=== PATIENT | male | born 1985 | race Caucasian/White ===

== ENCOUNTER 2017-08-06 08:08 | Emergency (ER) | payer OTHER ==
[~2017-08-06] VITALS: Ht 177.8 cm; Wt 45.4 kg
[~2017-08-06 08:08] MED LIST: CILOXAN5 ML OP; HYDROCODONE-AP1 EAC6 PO; IBUPROFEN 800800 M1 PO; MINOCIN100 MG PO; PENICILLIN V P500 MG PO
[2017-08-06] MEDS ORDERED: NORCO 5-325 TA1 EACH PO (08:41)
[2017-08-06] MEDS ORDERED: BACTRIM DS TAB1 EACH PO (08:41)
[2017-08-06 09:14] VITALS: BP 140/76
== END 2017-08-06 09:14 | disposition home or self-care (01) ==
LOC: M.ERS 08:08
DX: L02.211 Cutaneous abscess of abdominal wall (principal); Z87.891 Personal history of nicotine dependence

== ENCOUNTER 2018-01-01 19:16 | Emergency (ER) | payer OTHER ==
[~2018-01-01] VITALS: Ht 185.4 cm; Wt 131.5 kg
[~2018-01-01 19:16] MED LIST changes: +BACTRIM DS TAB1 EACH PO; +NORCO 5-325 TA1 EACH PO
[2018-01-01] MEDS ORDERED: NORCO 5-325 TA1 EACH PO (19:46)
[2018-01-01] MEDS ORDERED: PENICILLIN VK500 MG PO (19:46)
[2018-01-01 19:56] VITALS: BP 136/87
== END 2018-01-01 19:58 | disposition home or self-care (01) ==
LOC: M.ERS 19:16
DX: S02.5XXA Fracture of tooth (traumatic), initial encounter for closed fracture (principal); Z87.891 Personal history of nicotine dependence; X58.XXXA Exposure to other specified factors, initial encounter; Y93.89 Activity, other specified; Y92.89 Other specified places as the place of occurrence of the external cause; Y99.8 Other external cause status

== ENCOUNTER 2018-12-31 12:44 | Emergency (ER) | payer OTHER ==
[~2018-12-31] VITALS: Ht 185.4 cm; Wt 127.0 kg
[~2018-12-31 12:44] MED LIST changes: +PENICILLIN VK500 MG PO
[2018-12-31 14:05] LABS: URINE BILIRUBIN NEGATIVE (Negative); URINE BLOOD NEGATIVE (Negative); URINE CLARITY CLEAR; URINE COLOR YELLOW; URINE GLUCOSE-RANDOM NEGATIVE (Negative); URINE KETONES NEGATIVE (Negative); URINE LEUKOCYTES-REFLEX NEGATIVE (Negative); URINE NITRITE-REFLEX NEGATIVE (Negative); URINE PROTEIN NEGATIVE (Negative); URINE SPECIFIC GRAVITY 1.025 (1.005-1.030); URINE UROBILINOGEN 0.2 E.U./dl (0.2-1.0)
[2018-12-31] MEDS ORDERED: FLEXERIL PO (14:08)
[2018-12-31 14:22] VITALS: BP 116/76
== END 2018-12-31 14:23 | disposition home or self-care (01) ==
LOC: M.ERS 12:44
PROVIDERS: Nurse Practitioner Family
DX: S39.012A Strain of muscle, fascia and tendon of lower back, initial encounter (principal); Z87.891 Personal history of nicotine dependence; X50.9XXA Other and unspecified overexertion or strenuous movements or postures, initial encounter; Y93.89 Activity, other specified; Y92.89 Other specified places as the place of occurrence of the external cause; Y99.8 Other external cause status

== ENCOUNTER 2019-08-21 11:42 | Emergency (ER) | payer OTHER ==
[~2019-08-21] VITALS: Ht 182.9 cm; Wt 122.5 kg
[~2019-08-21 11:42] MED LIST changes: +FLEXERIL PO
[2019-08-21 11:48] VITALS: BP 122/71
[2019-08-21 12:13] LABS: ABSOLUTE BASOPHILS 0.1 thou/uL (0.0-0.2); ABSOLUTE LYMPHOCYTES 1.4 thou/uL (0.8-5.3); ABSOLUTE MONOCYTES 1.1 thou/uL (0.0-1.2); ABSOLUTE NEUTROPHILS 13.5 thou/uL (1.6-8.1); BASOPHILS 0.3 %; EOSINOPHILS 0.2 %; HEMATOCRIT 46.7 % (42.0-52.0); HEMOGLOBIN 16.3 gm/dL (14.0-18.0); MCH 31.4 pg (26.0-34.0); MCHC 34.9 g/dL (28.0-37.0); MCV 89.9 fL (80.0-100.0); MONOCYTES 6.5 %; MPV 8.9 fl. (7.2-11.1); NUCLEATED RBCS 0 /100WBC; PLATELET COUNT* 191 thou/uL (150-400); RBC 5.19 mil/uL (4.50-6.00); RDW-CV 13.7 % (10.5-14.5); WBC 16.1 thou/uL (4.0-11.0)
[2019-08-21 12:24] LABS: CALCIUM 9.1 mg/dL (8.5-10.1); POTASSIUM 4.4 mmol/L (3.5-5.1)
[2019-08-21 12:28] LABS: ALBUMIN 4.3 g/dL (3.4-5.0); TOTAL BILIRUBIN 0.7 mg/dL (<0.1-1.0); TOTAL PROTEIN 7.9 g/dL (6.4-8.2)
[2019-08-21 12:42] LABS: URINE BILIRUBIN NEGATIVE (Negative); URINE BLOOD NEGATIVE (Negative); URINE CLARITY CLEAR; URINE COLOR YELLOW; URINE GLUCOSE-RANDOM NEGATIVE (Negative); URINE KETONES TRACE (Negative); URINE LEUKOCYTES-REFLEX NEGATIVE (Negative); URINE NITRITE-REFLEX NEGATIVE (Negative); URINE PROTEIN NEGATIVE (Negative); URINE SPECIFIC GRAVITY >= 1.030 (1.005-1.030); URINE UROBILINOGEN 0.2 E.U./dl (0.2-1.0)
[2019-08-21 14:28] VITALS: BP 112/59
[2019-08-21 16:56] VITALS: BP 112/59
[2019-08-21] MEDS ORDERED: PERCOCET 5-3251 EACH PO (17:04)
--- NOTE | 2019-08-22 09:12 | OP ---
[address] [address] OPERATIVE REPORT Name: PIPPA BUCIO Jaye [facility] [id number] Admission: 08/21/19 Attend Phys: Discharge: 08/21/19 Date of : 87 Report #: [id number] THIS REPORT FOR: //name// cc: ANTHONY Caldwell family physician/PCP ANTHONY Caldwell family physician/PCP ~ THIS REPORT FOR: //name// CC: Mara CRUZ physician/PCP Primary Care Physician DICTATED BY: Vanessa Mays DO DATE OF SERVICE: 08/21/2019 PREOPERATIVE DIAGNOSIS: Acute appendicitis. POSTOPERATIVE DIAGNOSIS: Acute appendicitis. PROCEDURE PERFORMED: Laparoscopic appendectomy. PRIMARY SURGEON: Mara Farley DO COLDFUSION: Vanessa Mays DO, PGY2 SECOND MARSHMALLOW MACHINE OPERATOR: Jason Alcantara DO, PGY1 ANESTHESIA: General and local. ESTIMATED BLOOD LOSS: 5. SPECIMEN: Appendix. COMPLICATIONS: None. INDICATIONS FOR PROCEDURE: The patient is a 34-year-old gentleman that presented to the Emergency Department with right lower quadrant abdominal pain that started this morning and had gotten progressively worse since that time. Workup in the Emergency Department revealed a leukocytosis. A CT scan was consistent with acute appendicitis. It was recommended that he undergo laparoscopic appendectomy. The procedure, risks, benefits, possible complications to include bleeding, infection, injury to surrounding structures, injury to bowel or bladder, need for open procedure, need for additional surgeries, risks of anesthesia, and other risks of surgery were discussed with the patient in great detail. He voiced complete understanding and wished to proceed with surgery. [facility] [address] [place] [address] OPERATIVE REPORT Name: PIPPA BUCIO Room: [facility] Asia#: [id number] Admission: 08/21/19 Attend Phys: Discharge: 08/21/19 Date of : 87 Report #: [id number] DESCRIPTION OF PROCEDURE: Informed consent was obtained. The patient was taken to the operating room and placed supine on the operating room table. Preoperative antibiotics were given. SCDs were placed on bilateral lower extremities. The patient's left arm was tucked at his side. The abdomen was prepped and draped in the standard sterile fashion. A timeout was performed to ensure correct patient and procedure. We began by injecting approximately 10 mL of 0.5% Marcaine in the infraumbilical region. A 3 cm horizontal infraumbilical incision was made using a #11 blade scalpel. Incision was carried down through the subcutaneous tissue using electrocautery. S retractors were used to dissect further down to the level of the fascia. Fascia was then grasped between 2 Kochers and elevated. The fascia was incised using electrocautery. Peritoneum was entered bluntly using hemostat. A finger sweep was performed to ensure there were no miko-incisional adhesions. The 0 Vicryl stay sutures were placed on either side of the fascial opening. A 12 mm Christy trocar was then inserted through the fascial opening. Abdomen was insufflated without difficulty. Camera was inserted and a sweep of the anterior abdominal contents was performed. There was some purulent inflammatory fluid in the pelvis as the appendix appeared to be sticking up in the right lower quadrant and appeared acutely inflamed. At this point, our left lower quadrant and suprapubic 5 mm trocars were inserted under direct visualization. The patient was placed in the Trendelenburg position with the left side down. Laparoscopic graspers were inserted. The mesoappendix was grasped and elevated. Blunt dissection was used to free the appendix from some surrounding adhesions. This was done very easily. The base of the appendix was identified. A [place] dissector was used to dissect a window through the mesoappendix at the base of the appendix. Once this was completed, a 45 mm purple load on the Endo-KAMILLE stapler was used to come across the base of our appendix. An additional 45 mm purple load on the Endo-KAMILLE stapler was used to come across our mesoappendix. Once the appendix was freed from its attachments, our staple lines were inspected. Hemostasis was achieved using electrocautery. The EndoCatch bag was inserted and the appendix was placed within it. Suction immunology specialist was used to irrigate the right lower quadrant as well as the pelvis. The patient was flattened out. Our staple lines were reinspected to ensure hemostasis. The suprapubic and left lower quadrant 5 mm trocars were removed under direct visualization. Abdomen was desufflated without difficulty. The Christy trocar and appendix within the EndoCatch bag were removed without issues. The fascia at the infraumbilical incision was again grasped between 2 Kochers. Previously placed 0 Vicryl stay sutures were removed. The fascia was closed using 0 Vicryl suture in a [id number] fashion. An additional 20 mL of 0.5% Marcaine were used for local anesthesia at our incision sites. The subcutaneous tissue at the infraumbilical incision was closed using 3-0 Vicryl suture in a simple interrupted and inverted fashion. The skin was closed at the infraumbilical incision using 4-0 Monocryl suture in a running subcuticular fashion. The 5 mm trocar sites were closed using 4-0 Monocryl suture in a simple interrupted and inverted fashion. Abdomen was cleansed and dried. Dermabond was applied to [place] [address] [address] OPERATIVE REPORT Name: PIPPA BUCIO [facility] [id number] Admission: 08/21/19 Attend Phys: Discharge: 08/21/19 Date of : 87 Report #: [id number] each incision. The patient tolerated the procedure very well. He was allowed to awaken in the operating room and was transferred to the PACU in stable condition with plans to possibly discharge home later today. <ELECTRONICALLY SIGNED> By: Mara Farley DO 08/22/19 0912 1644 1724Clali Farley DO /nt
--- NOTE | 2019-08-25 14:09 | PATH ---
[facility] [address] [place] [address] PATHOLOGY RPT PROCEDURE Name: PIPPA WHITEHEAD Room: [facility] Asia#: [id number] Admission: 08/21/19 Date of : 87 Discharge: 08/21/19 Report #: [id number] Path Case #: [id number] [facility] Accession Number: [id number] . 01 Material submitted: . appendix - APPENDIX . 01 Clinical history: . Appendicitis . 02 Diagnosis: Appendix: - Acute appendicitis, periappendicitis and serositis. . (JOSS:yanelis; 08/25/2019) [facility] 08/25/2019 1149 Local . 02 Electronically signed: . Servando Cueva MD, Pathologist NPI- [id number] . 01 Gross description: . The specimen is received in formalin, labeled "Pippa Whitehead, appendix" and consists of an intact purple vee appendix measuring 7.8 cm in length and up to 1.1 cm in diameter with an attached mesoappendix measuring 2.9 cm in thickness. The margin is inked. The lumen is dilated from 0.2 cm to 0.4 cm containing brown fecal matter. No gross lesions are identified. Customs Collector sections are submitted in A1-A2. (CHETNA; 08/22/2019) JFQ/JFQ 08/25/2019 1148 Local . 02 Pathologist provided ICD-10: K35.80 . 02 CPT . 366195 Specimen Comment: A courtesy copy of this report has been sent to [phone] Specimen Comment: Report sent to Performed at: [address], [place], [place] [id number] MD Elpidio Glass MD Phone: [phone] Performed at: 02 [facility] [address], [place], [place] [id number] MD Servando Cueva MD Phone: [phone]
== END 2019-08-21 20:04 | disposition home or self-care (01) ==
LOC: M.SUR 11:42 → M.ERS 11:42 → M.SUR 14:54 → M.TBA 14:54 → M.SUR 20:04
PROVIDERS: Emergency Medicine Emergency Medical Services
DX: K37 Unspecified appendicitis (principal); Z87.891 Personal history of nicotine dependence

== ENCOUNTER 2020-07-02 08:53 | Emergency (ER) | payer OTHER ==
[~2020-07-02] VITALS: Ht 188 cm; Wt 99.8 kg
[~2020-07-02 08:53] MED LIST changes: +PERCOCET 5-3251 EACH PO
[2020-07-02] MEDS ORDERED: AMOXICILLIN 50500 MG PO (09:39)
[2020-07-02] MEDS ORDERED: HYDROCODON-ACE1 EAC7 PO (09:39)
[2020-07-02 09:52] VITALS: BP 167/80
== END 2020-07-02 09:53 | disposition home or self-care (01) ==
LOC: M.ERS 08:53
DX: K04.7 Periapical abscess without sinus (principal); J02.9 Acute pharyngitis, unspecified; K02.9 Dental caries, unspecified; Z87.891 Personal history of nicotine dependence